=== PATIENT | female | born 1995 | race Two or more races ===

== ENCOUNTER 2019-07-21 23:30 | Observation (INO) | payer SELFPAY ==
[~2019-07-21] VITALS: Ht 157.5 cm; Wt 64.0 kg
[2019-07-22] MEDS ORDERED: SODIUM CHLORIDE 0.9% 1,000ML IVBOLUS ONE
[2019-07-22] MEDS ORDERED: ONDANSETRON 2MG/ML, 2ML IVPush ONE
[2019-07-22] MEDS ORDERED: SODIUM CHLORIDE FLUSH 10ML SYR IVF ONE
[2019-07-22 00:14] LABS: BASOPHILS # (AUTO) 0.02 x10^3/uL (0-0.1); BASOPHILS % (AUTO) 0 % (0-1); EOSINOPHILS # (AUTO) 0.25 x10^3/uL (0-0.4); EOSINOPHILS % (AUTO) 3 % (1-7); LYMPHOCYTES # (AUTO) 1.99 x10^3/uL (1-3.4); LYMPHOCYTES % (AUTO) 25 % (22-44); MD NO; MEAN CORPUSCULAR HEMOGLOBIN 27.7 pg (27.0-34.8); MEAN CORPUSCULAR HGB CONC 33.2 g/dL (32.4-35.8); MEAN CORPUSCULAR VOLUME 83.5 fL (80-100); MEAN PLATELET VOLUME 7.7 fL (7.4-10.4); MONOCYTES # (AUTO) 0.52 x10^3/uL (0.2-0.8); MONOCYTES % (AUTO) 7 % (2-9); NEUTROPHILS # (AUTO) 5.08 x10^3/uL (1.8-6.8); NEUTROPHILS % (AUTO) 65 % (42-75); PLATELET COUNT 255 x10^3/uL (130-400); RED BLOOD COUNT 4.16 x10^6/uL (3.82-5.3); RED CELL DISTRIBUTION WIDTH 15.7 % (9.6-15.2)
[2019-07-22] MEDS ORDERED: ONDANSETRON 2MG/ML, 2ML ONE ×2 (00:17→13:08)
[2019-07-22 00:19] LABS: MICROSCOPIC NOT IND
[2019-07-22 00:21] LABS: ALANINE AMINOTRANSFERASE 46 U/L (12-78); ALBUMIN 3.9 g/dL (3.4-5.0); ANION GAP 7 mmol/L (5-15); CALCIUM 8.3 mg/dL (8.5-10.1); CHLORIDE 108 mmol/L (98-107); CREATININE 0.69 mg/dL (0.55-1.02)
[2019-07-22 00:26] LABS: ALKALINE PHOSPHATASE 63 U/L (45-117); BILIRUBIN,TOTAL 0.7 mg/dL (0.2-1.0); TOTAL PROTEIN 7.4 g/dL (6.4-8.2)
--- NOTE | 2019-07-22 01:03 | NUR ---
PT IS A 24 F WITH C/O SHARP AND ACHING R LOWER ABD 10/10 PAIN THAT STARTED YESTERDAY SUDDENLY AND HAS INCREASED IN PAIN. PT DENIED NAUSEA AND VOMITING.
--- NOTE | 2019-07-22 01:54 | NUR ---
Delroy RN: Assisted pt to BR with steady gait. No further needs expressed. Pt aware of POC--awaiting CT results. Call light in reach.
[2019-07-22] MEDS ORDERED: SODIUM CHLORIDE 0.9% 1,000 ML IV ONE (02:49)
[2019-07-22] MEDS ORDERED: CEFOTETAN PMX 1GM/50ML 50 ML ONE (02:57)
[2019-07-22] MEDS ORDERED: CEFOTETAN PMX 1GM/50ML 50 ML IV ONE (03:00)
[2019-07-22] MEDS ORDERED: ONDANSETRON 2MG/ML, 2ML IVPush PRN ×4 (03:00→15:00)
[2019-07-22] MEDS ORDERED: MORPHINE SULFATE 4 MG/ML, 1ML IVPush PRN ×2 (03:00→11:00)
[2019-07-22 03:40] VITALS: BP 81/51
[2019-07-22] MEDS ORDERED: OMNIPAQUE 350 MG/ML, 100ML BOTTLE ONE (06:48)
[2019-07-22 06:56] VITALS: BP 93/59
[2019-07-22 09:35] LABS: HCG UR SG > 1.045 (1.003-1.030)
[2019-07-22] MEDS ORDERED: CHLORHEXIDINE 15 ML UDC ONE (12:13)
[2019-07-22] MEDS ORDERED: FENTANYL PF 250 MCG/5ML ONE (12:35)
[2019-07-22] MEDS ORDERED: MIDAZOLAM 1 MG/ML, 2ML ONE (12:35)
[2019-07-22] MEDS ORDERED: LIDOCAINE-MPF 2% ,5ML ONE (12:42)
[2019-07-22] MEDS ORDERED: CEFOTETAN 1 GM ONE (12:42)
[2019-07-22] MEDS ORDERED: BUPIVACAINE/PF-EPI 0.5% 1:200K INFIL ONE (13:02)
[2019-07-22] MEDS ORDERED: CEFAZOLIN 1,000 MG ONE (13:08)
[2019-07-22] MEDS ORDERED: NEOSTIGMINE 1 MG/ML, 10ML ONE (13:08)
[2019-07-22] MEDS ORDERED: SUCCINYLCHOLINE 20 MG/ML, 10ML ONE (13:08)
[2019-07-22] MEDS ORDERED: PROPOFOL 10 MG/ML, 20ML ONE (13:08)
[2019-07-22] MEDS ORDERED: ROCURONIUM 10MG/ML,5ML ONE (13:08)
[2019-07-22] MEDS ORDERED: DEXAMETHASONE 4 MG/ML, 1ML ONE (13:08)
[2019-07-22] MEDS ORDERED: GLYCOPYRROLATE 0.2MG/1ML, 5ML ONE (13:08)
[2019-07-22] MEDS ORDERED: OXYcodone 5 MG/5 ML ORAL.SOL UDC PO PRN ×2 (13:30)
[2019-07-22] MEDS ORDERED: morphine SULFATE 10 MG/ML, 1ML IVPush PRN (13:30)
[2019-07-22] MEDS ORDERED: PROMETHAZINE 25 MG/ML, 1ML IVPush PRN (13:30)
[2019-07-22] MEDS ORDERED: FENTANYL PF 100 MCG/2ML IV PRN (13:30)
[2019-07-22] MEDS ORDERED: MEPERIDINE/PF 25MG/0.5ML IVPush PRN (13:30)
[2019-07-22] MEDS ORDERED: DIAZEPAM 5 MG/ML, 2ML IVPush PRN (13:30)
[2019-07-22] MEDS ORDERED: ACETAMINOPHEN 325 MG TABLET PO PRN (13:30)
[2019-07-22] MEDS ORDERED: PROMETHAZINE 25 MG SUPP PR PRN (13:30)
[2019-07-22] MEDS ORDERED: LORazepam 2 MG/ML, 1ML IVPush PRN (13:30)
[2019-07-22] MEDS ORDERED: HYDROmorphone 1 MG/ML, 1ML INJ IVPush PRN (13:30)
[2019-07-22] MEDS ORDERED: PROMETHAZINE 12.5 MG SUPP PR PRN (13:30)
[2019-07-22] MEDS ORDERED: OXYcodone 5 MG/5 ML ORAL.SOL UDC ONE (13:37)
[2019-07-22 14:15] VITALS: BP 98/64
[2019-07-22] MEDS ORDERED: IBUPROFEN 600 MG TABLET PO SCH (16:00)
[2019-07-22] MEDS ORDERED: OXYC5CAP2 PO (16:58)
== END 2019-07-22 17:58 | disposition home or self-care (01) ==
LOC: ED 07-22 01:21 → INTOOBSV 07-22 02:52 → EDIP 07-22 02:52 → 4NE 07-22 03:33
PROVIDERS: ADMIT Surgery; ATTEND Surgery
DX: K35.30 Acute appendicitis with localized peritonitis, without perforation or gangrene (principal)
CPT/HCPCS: 36415; 44970; 74177; 80053; 81003; 81025; 84703; 85025; 96365; 96375; 99285; G0378; J0330; J0690; J1100; J2250; J2405; J2704; J2710; J3010; J3490; J7030; Q9967; 88304

== ENCOUNTER 2020-07-23 18:56 | Emergency (ER) | payer MEDICAID ==
[~2020-07-23] VITALS: Ht 160 cm; Wt 57.9 kg
[~2020-07-23 18:56] MED LIST: OXYC5CAP2 PO
[2020-07-23 19:20] VITALS: BP 112/65
[2020-07-23 19:48] LABS: BASOPHILS % (AUTO) 1 % (0-1); EOSINOPHILS % (AUTO) 5 % (1-7); LYMPHOCYTES % (AUTO) 26 % (22-44); MD NO; MEAN CORPUSCULAR HEMOGLOBIN 29.5 pg (27.0-34.8); MEAN CORPUSCULAR HGB CONC 33.1 g/dL (32.4-35.8); MEAN PLATELET VOLUME 7.3 fL (7.4-10.4); MONOCYTES % (AUTO) 6 % (2-9); NEUTROPHILS % (AUTO) 62 % (42-75); PLATELET COUNT 298 x10^3/uL (130-400); RED BLOOD COUNT 4.28 x10^6/uL (3.82-5.3); RED CELL DISTRIBUTION WIDTH 13.7 % (9.6-15.2)
[2020-07-23 20:00] LABS: ALANINE AMINOTRANSFERASE 16 U/L (12-78); ALBUMIN 3.9 g/dL (3.4-5.0); ANION GAP 7 mmol/L (5-15); CALCIUM 8.4 mg/dL (8.5-10.1); CHLORIDE 109 mmol/L (98-107); CREATININE 0.68 mg/dL (0.55-1.02)
[2020-07-23 20:05] LABS: ALKALINE PHOSPHATASE 42 U/L (45-117); BILIRUBIN,TOTAL 0.2 mg/dL (0.2-1.0); TOTAL PROTEIN 7.6 g/dL (6.4-8.2)
== END 2020-07-23 21:16 | disposition home or self-care (01) ==
LOC: ED 21:06
DX: O46.91 Antepartum hemorrhage, unspecified, first trimester (principal); R10.2 Pelvic and perineal pain; Z90.89 Acquired absence of other organs; Z3A.01 Less than 8 weeks gestation of pregnancy
CPT/HCPCS: 36415; 76830; 80053; 84702; 85025; 86901; 99284